=== PATIENT | male | born 1990 | race Two or more races ===

== ENCOUNTER 2024-04-01 10:09 | Emergency (ER) | payer MEDICAID, OTHER ==
[~2024-04-01] VITALS: Ht 180.3 cm; Wt 111.3 kg
[2024-04-01 10:42] VITALS: BP 137/82; PULSE 74; RESP 17; TEMP 98.1; O2SAT 98
== END 2024-04-01 10:55 | disposition home or self-care (01) ==
LOC: ER 10:09
DX: L72.8 Other follicular cysts of the skin and subcutaneous tissue (principal)